=== PATIENT | female | born 1955 | race Caucasian/White ===

== ENCOUNTER 2021-01-05 11:00 | Emergency (ER) | payer BC ==
[~2021-01-05] VITALS: Ht 167.6 cm; Wt 72.0 kg
[2021-01-05] MEDS ORDERED: IV NORMAL SALINE 1,000ML 1,000 ML IV ONE (11:15)
--- NOTE | 2021-01-05 11:40 | PHYS DOC ---
General Adult EDM: Chief Complaint: SYNCOPE HPI: HPI: 65-year-old female presents via EMS after syncopal episode at home. The patient tells me that she was in the kitchen sitting down when she began to feel a hot flushed feeling all of her body. She then woke up on the floor. When EMS arrived they noted that she had very low blood pressure. After 500 mL of fluid she still was hypotensive, but more alert and aware of her surroundings. Patient has no significant history of syncopal episodes. She has no history of seizures. She has vitamin D deficiency and anxiety. She does take a benzo for sleep aid. She denies fever or chills. She has no chest pain, shortness of breath. Review of Systems: Review of Systems: Constitutional: Denies fever or chills Eyes: Denies change in visual acuity HENT: Denies nasal congestion or sore throat Respiratory: Denies cough or shortness of breath Cardiovascular: Denies chest pain or edema GI: Denies abdominal pain, nausea, vomiting, bloody stools or diarrhea : Denies dysuria Musculoskeletal: Denies back pain or joint pain Integument: Denies rash Neurologic: Syncope. Denies headache, focal weakness or sensory changes Endocrine: Denies polyuria or polydipsia Lymphatic: Denies swollen glands Psychiatric: Denies depression or anxiety Current Medications: Current Meds: Current Medications Medications (Trade) Dose Ordered Sig/Isreal Start Time Stop Time Status Last Admin Dose Admin Sodium Chloride 1,000 ml @ 1,000 mls/hr 1X ONCE 01/05/21 11:15 01/05/21 12:14 Allergies: Allergies: Allergies Coded Allergies Type Severity Reaction Last Updated Verified Sulfa (Sulfonamide Antibiotics) Allergy Unknown 01/05/21 Yes Physical Exam: PE: Constitutional: Well developed, well nourished, no acute distress, non-toxic appearance. Hypotensive. [] HENT: Normocephalic, atraumatic, bilateral external ears normal, oropharynx moist, no oral exudates, nose normal. [] Eyes: PERRLA, EOMI, conjunctiva normal, no discharge. [] Neck: Normal range of motion, no tenderness, supple, no stridor. [] Cardiovascular: Heart rate regular rhythm, no murmur [] Lungs & Thorax: Bilateral breath sounds clear to auscultation [] Abdomen: Bowel sounds normal, soft, no tenderness, no masses, no pulsatile masses. [] Skin: Warm, dry, no erythema, no rash. [] Back: No tenderness, no CVA tenderness. [] Extremities: No tenderness, no cyanosis, no clubbing, ROM intact, no edema. [] Neurologic: Alert and oriented X 3, normal motor function, normal sensory function, no focal deficits noted. Mild delay in answering questions, could be normal. [] Psychologic: Affect normal, judgement normal, mood normal. [] EKG: EKG: Sinus rhythm, rate 78, normal axis, no ST elevation or depression, PVC, prolonged QT. [] Radiology/Procedures: Radiology/Procedures: [] Impressions: XR CHEST 1V History: Reason: hypotension / Spl. Instructions: / History: Comparison: April 26, 2015 Findings: Hyperinflation with emphysematous changes. No consolidation or pleural effusion. No pneumothorax. Impression: 1. Hyperinflation with emphysematous changes. No consolidation. Electronically signed by: Jarod Romero DO (01/05/2021 11:57 AM) [id number] DICTATED AND SIGNED BY: JAROD ROMERO DO DATE: 01/05/21 1156 CC: DESIREE DAMON DO; JOSE FULLER DO ~MTH0 0 PQRS Compliance Statement: One or more of the following individualized dose reduction techniques were utili zed for this examination: 1. Automated exposure control 2. Adjustment of the mA and/or kV according to patient size 3. Use of iterative reconstruction technique CT HEAD WITHOUT CONTRAST History: Reason: AMS, possible seizure / Spl. Instructions: / History: Comparison: None. Procedure: Axial images are obtained of the head from the skull base through the vertex without IV contrast. Findings: The ventricles and sulci are normal for the patient's age. No mass-effect, midline shift, hemorrhage, extra-axial fluid collection, or obvious acute infarction is identified. Basilar cisterns are patent. Bone windows demonstrate no acute calvarial abnormality. Mucosal thickening left sphenoid and bilateral ethmoid sinuses. No air-fluid level. Mastoid air cells are well aerated. IMPRESSION: No acute intracranial abnormality. Electronically signed by: Azeem Hernadez MD (01/05/2021 11:48 AM) [id number] DICTATED AND SIGNED BY: AZEEM HERNADEZ MD DATE: 01/05/21 1145 CC: DESIREE DAMON DO; JOSE FULLER DO ~MTH0 0 Heart Score: C/O Chest Pain: N/A Risk Factors: Risk Factors: DM, Current or recent (<one month) smoker, HTN, HLP, family history of CAD, obesity. Risk Scores: Score 0 - 3: 2.5% MACE over next 6 weeks - Discharge Home Score 4 - 6: 20.3% MACE over next 6 weeks - Admit for Clinical Observation Score 7 - 10: 72.7% MACE over next 6 weeks - Early Invasive Strategies Course & Med Decision Making: Course & Med Decision Making Pertinent Labs and Imaging studies reviewed. (See chart for details) On arrival, the patient was immediately given a liter normal saline. She was alert and able to answer my questions despite her low blood pressure. Her blood pressure has improved with fluids. The patient's labs are remarkable for lactic acid of 2.1. The fluids should improve this. She also has a potassium of 3.1 for which we will give 40 mEq p[address]o. Her head CT is negative for acute findings. Her chest x-ray is negative for acute findings. She does have prolonged QT on EKG. Her troponin is negative. The patient's work-up is essentially negative. It turns out the patient got 15 mg of Valium prior to having a steroid shoulder injection today. Then she was sent home. This is likely what led to the patient's low blood pressure and syncopal episode. She is improved at this time. She is stable for discharge. [] Dragon Disclaimer: Dragvandana Disclaimer: This electronic medical record was generated, in whole or in part, using a voice recognition dictation system. Departure Departure: Impression: Primary Impression: Syncope Qualified Codes: R55 - Syncope and collapse Additional Impression: Hypotension Qualified Codes: I95.2 - Hypotension due to drugs Disposition: HOME / SELF CARE / HOMELESS Condition: IMPROVED Referrals: JOSE FULLER DO (PCP) Patient Instructions: Hypotension, [id number], Syncope, [id number] DESIREE DAMON DO Jan 05, 2021 11:40
[2021-01-05 11:51] LABS: BASO % 0 % (0-3); EOS # 0.3 x10^3/uL (0.0-0.7); EOS % 3 % (0-3); HEMATOCRIT 39.2 % (36.0-47.0); HEMOGLOBIN 13.1 g/dL (12.0-15.5); LYMPH % 21 % (24-48); MEAN CORPUSCULAR HEMOGLOBIN 31 pg (25-35); MEAN CORPUSCULAR HGB CONC 34 g/dL (31-37); MEAN CORPUSCULAR VOLUME 91 fL (79-100); MONO # 0.3 x10^3/uL (0.0-1.1); MONO % 3 % (0-9); NEUT # 6.9 x10^3uL (1.8-7.7); NEUT % 73 % (31-73); PLATELET COUNT 210 x10^3/uL (140-400); RED BLOOD COUNT 4.29 x10^6/uL (3.50-5.40); RED CELL DISTRIBUTION WIDTH 13.7 % (11.5-14.5); WHITE BLOOD COUNT 9.5 x10^3/uL (4.0-11.0)
--- NOTE | 2021-01-05 11:51 | EKG ---
[address] [address] Test Date: 2021-01-05 Test Time: 11:12:56 Pat Name: LEIGHTON HUNTER Department: Room: Gender: F Hanger: GLORIA : 1955 Requested By: DESIREE DAMON Order Number: [id number] Reading MD: Measurements Intervals [place] Rate: 78 P: 71 [place]: 148 QRS: 83 QRSD: 90 T: 76 QT: 456 QTc: 524 Interpretive Statements SINUS RHYTHM VENTRICULAR PREMATURE COMPLEX(ES) PROLONGED QT ABNORMAL ECG RI6.02 No previous ECG available for comparison
--- NOTE | 2021-01-05 11:51 | RAD ---
PQRS Compliance Statement: One or more of the following individualized dose reduction techniques were utilized for this examinat ion: 1. Automated exposure control 2. Adjustment of the mA and/or kV according to patient size 3. Use of iterative reconstruction technique CT HEAD WITHOUT CONTRAST History: Reason: AMS, possible seizure / Spl. Instructions: / History: Comparison: None. Procedure: Axial images are obtained of the head from the skull base through the vertex without IV co ntrast. Findings: The ventricles and sulci are normal for the patient's age. No mass-effect, midline shift, hemorrhage, extra-axial fluid collection, or obvious acute infarction is identified. Basilar cisterns are patent. Bone windows demonstrate no acute calvarial abnormality. Mucosal thickening left sphenoid and bilateral ethmoid sinuses. No air-fluid level. Mastoid air cells are well aerated. IMPRESSION: No acute intracranial abnormality. Electronically signed by: Azeem Hernadez MD (01/05/2021 11:48 AM) [id number]
--- NOTE | 2021-01-05 12:00 | RAD ---
XR CHEST 1V History: Reason: hypotension / Spl. Instructions: / History: Comparison: April 26, 2015 Findings: Hyperinflation with emphysematous changes. No consolidation or pleural effusion. No pneumothorax. Impression: 1. Hyperinflation with emphysematous changes. No consolidation. Electronically signed by: Jarod Romero DO (01/05/2021 11:57 AM) [id number]
[2021-01-05 12:04] LABS: CALCIUM 8.6 mg/dL (8.5-10.1); CREATININE 0.8 mg/dL (0.6-1.0); GFR 72.4; POTASSIUM 3.1 mmol/L (3.5-5.1)
[2021-01-05 12:10] LABS: ALBUMIN 3.2 g/dL (3.4-5.0); ALBUMIN/GLOBULIN RATIO 1.1 (1.0-1.7); TOTAL BILIRUBIN 0.4 mg/dL (0.2-1.0)
[2021-01-05] MEDS ORDERED: POTASSIUM CHLORIDE 20 MEQ TABLET.ER. PO ONE (13:15)
[2021-01-05 14:12] VITALS: BP 123/72
== END 2021-01-05 14:13 | disposition home or self-care (01) ==
LOC: ER 11:00
DX: R55 Syncope and collapse (principal); I95.9 Hypotension, unspecified; Z88.2 Allergy status to sulfonamides
CPT/HCPCS: 36415; 70450; 71045; 80053; 83605; 84484; 85025; 87040; 93005; 96360; 99285; J7030